=== PATIENT | female | born 1985 | race Caucasian/White ===

== ENCOUNTER 2017-08-23 06:58 | Day surgery (SDC) | payer BC ==
[~2017-08-23 06:58] MED LIST: Lactated Ringers 1,000 ML IV SCH; Lidocaine 1%/Sod Bicarbonate in NS 8.4% 1 ML Syringe IV PRN; Sodium Chloride 0.9% 10 ML Syringe FLUSH PRN
[2017-08-23] MEDS ORDERED: Ondansetron 4 MG/2 ML SDV ONE (07:45)
[2017-08-23] MEDS ORDERED: Midazolam 1 MG/ML 2 ML SDV ONE (07:46)
[2017-08-23] MEDS ORDERED: Propofol 200 MG/20 ML SDV ONE (07:46)
[2017-08-23] MEDS ORDERED: fentaNYL 250 MCG/5 ML SDV ONE (07:46)
[2017-08-23] MEDS ORDERED: ceFAZolin 1 GM Vial ONE (07:46)
[2017-08-23] MEDS ORDERED: Lidocaine 1% 4 ML ONE (07:46)
[2017-08-23] MEDS ORDERED: Lactated Ringers 1,000 ML ONE (08:49)
[2017-08-23] MEDS ORDERED: Ketorolac 30 MG/ML SDV IVPUSH PRN (08:55)
[2017-08-23] MEDS ORDERED: fentaNYL 100 MCG/2 ML SDV IVPUSH PRN (08:55)
[2017-08-23] MEDS ORDERED: HYDROmorphone 0.5 MG/0.5 ML Syringe IVPUSH PRN (08:55)
--- NOTE | 2017-08-23 08:55 | PCM.OPNOTE ---
- General Post-Op/Procedure Note Date of Surgery/Procedure: 08/23/17 Operative Procedure(s): Hysteroscopy, D&C and NovaSure endometrial ablation Findings: Wispy endometrial tissue noted especially in the anterior left side of the uterus. Tubal ostia were identified and appeared normal. The uterus sounded to 10.5 cm with cervix being 3 cm above that. The width of the uterus was 4.3 cm. The is was 154. Pre Op Diagnosis: 1. Menorrhagia. 2. Dysmenorrhea Post-Op Diagnosis: Same Anesthesia Technique: General LMA Primary Surgeon: Clark Noel Secondary Surgeon: Mary Rosa Anesthesia Provider: Rusty Cao Fluid Replacement, Intraop: 1,100 (Crystalloid) EBL in mLs: 5 Complications: None Condition: Good Free Text/Narrative:: Surgery duration 14 minutes Procedure Procedure: The patient is taking the operative placed in a supine position on the operating table. She received 2 g of Ancef preoperatively for infection prophylaxis and had sequential compression stockings in place for DVT prophylaxis. Patient was given general anesthesia and an LMA was placed for ventilation. She is placed in a dorsal lithotomy position and prepped and draped in usual fashion. An exam under anesthesia was performed. Findings as described above. A weighted speculum was placed in the vagina. Cervix is visualized. It was grasped anteriorly with a single-tooth tenaculum. Uterus was then sounded to a depth of 10-1/2 cm. It is from the anterior, mid position. The cervix was dilated to entrance of a 5 mm 30 rigid hysteroscope. This was placed without problem and normal saline was used as a distending medium. The perimetria cavity was visualized. Findings as described above. Decision was made to proceed with curettage to remove tissue and to obtain a sampling of endometrium. This was done with a medium size sharp curette. Minimal amount tissue was obtained. Minimal bleeding was encountere Image ablation was then performed. Should be noted consent was appropriately signed by the patient prior to the procedure. The cervix was dilated to allow placement of the NovaSure endometrial apparatus. Uterus had sounded to 10 cm -3 cm for cervix for uterine/endometrial cavity length of 7-1/2 cm. The NovaSure device was set to 6 now centimeters as this was maximal setting. The image cavities foundry 4.3 cm in width. Uterine cavity integrity check was then performed and the endometrial cavity was then ablated. Energy was 154. The ablation took approximately 2 minutes. The array was collapsed and the apparatus was removed. Hysteroscope was then placed back into the endometrial cavity. Blood was flushed out and the findings were consistent with a cauterizedendometrial cavity. At this point the scope was removed. The vagina was cleared of old blood , the cervix was released and the weighted speculum was removed. Patient was returned to supine position and awakened from general anesthesia. She tolerated the procedure well and operating room in good condition.
[2017-08-23] MEDS ORDERED: Ibuprofen 600 MG Tab PO PRN (08:56)
[2017-08-23] MEDS ORDERED: Ondansetron 4 MG/2 ML SDV IVPUSH PRN (08:56)
--- NOTE | 2017-08-23 08:57 | PCM.PREANE ---
Preanesthetic Assessment - Anesthesia/Transfusion/Family Hx Anesthesia History: Prior Anesthesia Without Reaction Transfusion History: No Prior Transfusion(s) - Review of Systems General: No Symptoms Pulmonary: No Symptoms Cardiovascular: No Symptoms Gastrointestinal: No Symptoms Neurological: No Symptoms Other: Reports: None - Physical Assessment NPO Status Date: 08/22/17 NPO Status Time: 21:30 Pulse: 74 O2 Sat by Pulse Oximetry: 96 Respiratory Rate: 16 Blood Pressure: 97/74 Temperature: 36.8 C Vital Signs: Last Vital Signs Temp 36.8 C 08/23/17 07:10 Pulse 74 08/23/17 07:10 Resp 16 08/23/17 07:10 BP 97/74 08/23/17 07:10 Pulse Ox 96 08/23/17 07:10 Height: 1.63 m Weight: 61.235 kg ASA Class: 1 Mental Status: Alert & Oriented x3 Airway Class: Mallampati = 1 Dentition: Reports: Normal Dentition, [place](s) Thyro-Mental Finger Breadths: 3 Mouth Opening Finger Breadths: 3 ROM/Head Extension: Full Lungs: Clear to Auscultation, Normal Respiratory Effort Cardiovascular: Regular Rate, Regular Rhythm - Allergies Allergies/Adverse Reactions: Allergies Allergy/AdvReac Type Severity Reaction Status Date / Time No Known Allergies Allergy Verified 08/20/17 10:57 - Blood Blood Available: No Product(s) Available: None - Anesthesia Plan Pre-Op Medication Ordered: None - Acknowledgements Anesthesia Type Planned: General Anesthesia Pt an Appropriate Candidate for the Planned Anesthesia: Yes Alternatives and Risks of Anesthesia Discussed w Pt/Guardian: Yes Pt/Guardian Understands and Agrees with Anesthesia Plan: Yes PreAnesthesia Questionnaire HEENT History: Reports: Impaired Vision, Other (See Below) Other HEENT History: wears glasses Cardiovascular History: Reports: None Respiratory History: Reports: None Gastrointestinal History: Reports: Cholelithiasis 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: , Other (See Below) Other OB/BYN History: menorrhagia, dysmenorrhea Musculoskeletal History: Reports: None Neurological History: Reports: None Psychiatric History: Reports: None Endocrine/Metabolic History: Reports: None Hematologic History: Reports: None Immunologic History: Reports: None Oncologic (Cancer) History: Reports: None Dermatologic History: Reports: None - Past Surgical History Head Surgeries/Procedures: Reports: None Cardiovascular Surgical History: Reports: None Respiratory Surgical History: Reports: None GI Surgical History: Reports: Cholecystectomy Female Surgical History: Reports: Tubal Ligation Endocrine Surgical History: Reports: None Neurological Surgical History: Reports: None Musculoskeletal Surgical History: Reports: None Oncologic Surgical History: Reports: None Dermatological Surgical History: Reports: None - SUBSTANCE USE Smoking Status *Q: Never Smoker Second Hand Smoke Exposure: No Recreational Drug Use History: No - HOME MEDS Home Medications: Home Meds Multivitamin [Daily Hill] 1 tab PO DAILY 08/20/17 [History] - CURRENT (IN HOUSE) MEDS Current Meds: Current Medications Lactated Ringer's (Ringers, Lactated) 1,000 mls @ 125 mls/hr IV ASDIRECTED MARVA Last Admin: 08/23/17 07:30 Dose: 125 mls/hr Lidocaine/Sodium Bicarbonate (Buffered Lidocaine 1% In Ns 8.4%) 0.25 ml IV ONETIME PRN PRN Reason: Prior to IV Start Sodium Chloride (Saline Flush) 10 ml FLUSH ASDIRECTED PRN PRN Reason: Keep Vein Open Discontinued Medications Cefazolin Sodium (Ancef) Confirm Administered Dose 2 gm .ROUTE .STK-MED ONE Stop: 08/23/17 07:47 Fentanyl (Sublimaze) Confirm Administered Dose 250 mcg .ROUTE .STK-MED ONE Stop: 08/23/17 07:47 Lidocaine HCl (Xylocaine-Mpf 1%) Confirm Administered Dose 4 mls @ as directed .ROUTE .STK-MED ONE Stop: 08/23/17 07:47 Lactated Ringer's (Ringers, Lactated) Confirm Administered Dose 1,000 mls @ as directed .ROUTE .STK-MED ONE Stop: 08/23/17 08:50 Midazolam HCl (Versed 1 Mg/Ml) Confirm Administered Dose 2 mg .ROUTE .STK-MED ONE Stop: 08/23/17 07:47 Ondansetron HCl (Zofran) Confirm Administered Dose 4 mg .ROUTE .STK-MED ONE Stop: 08/23/17 07:46 Propofol (Diprivan 20 Ml) Confirm Administered Dose 200 mg .ROUTE .STK-MED ONE Stop: 08/23/17 07:47
--- NOTE | 2017-08-23 08:58 | PCM.POSTAN ---
POST ANESTHESIA ASSESSMENT - MENTAL STATUS Mental Status: Somnolent - VITAL SIGNS Pulse Rate: 73 SaO2: 93 Resp Rate: 8 Blood Pressure: 96/63 Temperature: 36.8 C - RESPIRATORY Respiratory Status: Respiratory Rate WNL, Airway Patent, O2 Saturation Stable, Supplemental Oxygen - CARDIOVASCULAR CV Status: Pulse Rate WNL, Blood Pressure Stable - GASTROINTESTINAL GI Status: No Symptoms - PAIN Pain Score: 0 - POST OP HYDRATION Hydration Status: Adequate & Stable - OBSERVATIONS Free Text/Narrative:: no anesthesia complications noted
== END 2017-08-23 10:15 | disposition home or self-care (01) ==
LOC: JD.SDS 06:58
PROVIDERS: ATTEND Obstetrics & Gynecology
DX: N92.0 Excessive and frequent menstruation with regular cycle (principal); N94.6 Dysmenorrhea, unspecified; Z98.51 Tubal ligation status; Z72.0 Tobacco use; Z90.49 Acquired absence of other specified parts of digestive tract
CPT/HCPCS: 58563; J0690; J1885; J2250; J2405; J3010; J7120; 00952; J2704

== ENCOUNTER 2020-09-13 06:47 | Day surgery (SDC) | payer BC ==
[2020-09-13] MEDS ORDERED: HYDROmorphone 0.5 MG/0.5 ML Syringe ONE (07:03)
[2020-09-13] MEDS ORDERED: Dexamethasone 4 MG/ML 5 ML MDV ONE (07:03)
[2020-09-13] MEDS ORDERED: Midazolam 1 MG/ML 2 ML SDV ONE (07:03)
[2020-09-13] MEDS ORDERED: Rocuronium 50 MG/5 ML Vial ONE (07:03)
[2020-09-13] MEDS ORDERED: Lactated Ringers 1,000 ML ONE (07:03)
[2020-09-13] MEDS ORDERED: Ondansetron 4 MG/2 ML SDV ONE (07:03)
[2020-09-13] MEDS ORDERED: Propofol 200 MG/20 ML SDV ONE (07:03)
[2020-09-13] MEDS ORDERED: fentaNYL 250 MCG/5 ML SDV ONE (07:04)
[2020-09-13] MEDS ORDERED: Lidocaine 1% 4 ML ONE (07:04)
[2020-09-13] MEDS ORDERED: ceFAZolin 1 GM Vial ONE (07:04)
[2020-09-13] MEDS ORDERED: Ketorolac 30 MG/ML SDV ONE (07:04)
[2020-09-13] MEDS ORDERED: Sodium Chloride 0.9% 50 ML SDV ONE (07:16)
[2020-09-13] MEDS ORDERED: Lidocaine 1% with EPINEPHrine 1:100,000 20 ML MDV ONE (07:16)
--- NOTE | 2020-09-13 07:24 | PCM.PREANE ---
Preanesthetic Assessment - Anesthesia/Transfusion/Family Hx Anesthesia History: Prior Anesthesia Without Reaction Family History of Anesthesia Reaction: No Transfusion History: No Prior Transfusion(s) - Review of Systems General: Other (covid negative and HCG negative) Pulmonary: No Symptoms Cardiovascular: No Symptoms Gastrointestinal: No Symptoms Neurological: No Symptoms Other: Reports: Anxiety - Physical Assessment NPO Status Date: 09/12/20 NPO Status Time: 22:00 ASA Class: 2 Mental Status: Alert & Oriented x3 Airway Class: Mallampati = 2 Dentition: Reports: Normal Dentition Thyro-Mental Finger Breadths: 3 Mouth Opening Finger Breadths: 3 ROM/Head Extension: Full Lungs: Clear to Auscultation, Normal Respiratory Effort Cardiovascular: Regular Rate, Regular Rhythm - Lab Values: Laboratory Last Values Urine HCG, Qual Negative (NEGATIVE) 09/13/20 07:00 - Allergies Allergies/Adverse Reactions: Allergies Allergy/AdvReac Type Severity Reaction Status Date / Time No Known Allergies Allergy Verified 08/20/17 10:57 - Blood Blood Available: No Product(s) Available: None - Anesthesia Plan Pre-Op Medication Ordered: None - Acknowledgements Anesthesia Type Planned: General Anesthesia Pt an Appropriate Candidate for the Planned Anesthesia: Yes Alternatives and Risks of Anesthesia Discussed w Pt/Guardian: Yes Pt/Guardian Understands and Agrees with Anesthesia Plan: Yes PreAnesthesia Questionnaire HEENT History: Reports: Impaired Vision, Other (See Below) Other HEENT History: wears glasses Cardiovascular History: Reports: None Respiratory History: Reports: None Gastrointestinal History: Reports: Cholelithiasis 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: , Other (See Below) Other OB/BYN History: menorrhagia, dysmenorrhea Musculoskeletal History: Reports: None Neurological History: Reports: None Psychiatric History: Reports: None Endocrine/Metabolic History: Reports: None Hematologic History: Reports: None Immunologic History: Reports: None Oncologic (Cancer) History: Reports: None Dermatologic History: Reports: None - Past Surgical History Head Surgeries/Procedures: Reports: None Cardiovascular Surgical History: Reports: None Respiratory Surgical History: Reports: None GI Surgical History: Reports: Cholecystectomy Female Surgical History: Reports: Tubal Ligation Endocrine Surgical History: Reports: None Neurological Surgical History: Reports: None Musculoskeletal Surgical History: Reports: None Oncologic Surgical History: Reports: None Dermatological Surgical History: Reports: None - HOME MEDS Home Medications: Home Meds Multivitamin [Daily Hill] 1 tab PO DAILY 08/20/17 [History] Ibuprofen [IJD: Ibuprofen] 600 mg PO Q4H PRN tablet 08/23/17 [Rx] - CURRENT (IN HOUSE) MEDS Current Meds: Current Medications Discontinued Medications Cefazolin Sodium (Ancef) Confirm Administered Dose 2 gm .ROUTE .STK-MED ONE Stop: 09/13/20 07:05 Dexamethasone (Dexamethasone) Confirm Administered Dose 20 mg .ROUTE .STK-MED ONE Stop: 09/13/20 07:04 Fentanyl (Sublimaze) Confirm Administered Dose 250 mcg .ROUTE .STK-MED ONE Stop: 09/13/20 07:05 Glycopyrrolate (Robinul) Confirm Administered Dose 0.4 mg .ROUTE .STK-MED ONE Stop: 09/13/20 07:04 Hydromorphone HCl (Dilaudid) Confirm Administered Dose 0.5 mg .ROUTE .STK-MED ONE Stop: 09/13/20 07:04 Lactated Ringer's (Ringers, Lactated) Confirm Administered Dose 1,000 mls @ as directed .ROUTE .STK-MED ONE Stop: 09/13/20 07:04 Lidocaine HCl (Xylocaine-Mpf 1%) Confirm Administered Dose 4 mls @ as directed .ROUTE .STK-MED ONE Stop: 09/13/20 07:05 Ketorolac Tromethamine (Toradol) Confirm Administered Dose 30 mg .ROUTE .STK-MED ONE Stop: 09/13/20 07:05 Midazolam HCl (Versed 1 Mg/Ml) Confirm Administered Dose 2 mg .ROUTE .STK-MED ONE Stop: 09/13/20 07:04 Neostigmine Methylsulfate (Neostigmine Methylsulfate) Confirm Administered Dose 5 mg .ROUTE .STK-MED ONE Stop: 09/13/20 07:04 Ondansetron HCl (Zofran) Confirm Administered Dose 4 mg .ROUTE .STK-MED ONE Stop: 09/13/20 07:04 Propofol (Diprivan 20 Ml) Confirm Administered Dose 200 mg .ROUTE .STK-MED ONE Stop: 09/13/20 07:04 Rocuronium Pointblank (Zemuron) Confirm Administered Dose 50 mg .ROUTE .STK-MED ONE Stop: 09/13/20 07:04
[2020-09-13] MEDS ORDERED: Sodium Chloride 0.9% 10 ML Syringe FLUSH PRN (07:54)
[2020-09-13] MEDS ORDERED: Lidocaine 1%/Sod Bicarbonate in NS 8.4% 1 ML Syringe IDERM PRN (07:54)
[2020-09-13] MEDS ORDERED: Lactated Ringers 1,000 ML IV SCH (08:00)
[2020-09-13] MEDS ORDERED: Acetaminophen/oxyCODONE 325-5 MG Tab PO PRN (08:44)
[2020-09-13] MEDS ORDERED: Ondansetron 4 MG/2 ML SDV IVPUSH PRN ×2 (08:44→09:03)
--- NOTE | 2020-09-13 08:50 | PCM.OPNOTE ---
- General Post-Op/Procedure Note Date of Surgery/Procedure: 09/13/20 Operative Procedure(s): Total vaginal hysterectomy with bilateral salpingectomy Findings: Uterus was normal size. Fallopian tubes were within normal is. Patient is status post tubal ligation. Both ovaries look functional and benign. Right ovary had a cyst which apparently had recently ruptured but was not bleeding and needed no further attention. Pre Op Diagnosis: 1. Dysmenorrhea. 2. Post ablation syndrome Post-Op Diagnosis: Same Anesthesia Technique: General ET Tube Other Anesthesia Type: Lidocaine quarter percent with [id number] cc total Primary Surgeon: Clark Noel Secondary Surgeon: Johana Benoit Anesthesia Provider: Lashell Love Washcloth Folder: Eduardo Pickering Reason Washcloth Folder Was Necessary: Assistance, retraction, patient safety, quality of care. Pathology: Uterus with cervix, bilateral fallopian tubes Fluid Replacement, Intraop: 1,600 EBL in mLs: 100 Complications: None Condition: Good Free Text/Narrative:: Surgery duration: 36 minutes Procedure: The patient was placed in supine position on the operating table. Patient was appropriately consented. General endotracheal anesthesia was accomplished. After positioning, and adequate prep and drape, the procedure was then performed. Sterile speculum was placed in the vagina and cervix was visualized. Cervix was injected with lidocaine quarter percent with epinephrine- 20 mL used. A full circumference incision was made in the cervical epithelium. The bladder was pushed well back off cervix. Posterior cul-de-sac was then entered sharply without problems. Left uterosacral was crossclamped with a Enseal vessel closure system. The left uterosacral and then the right uterosacral ligament pedicles were developed using the Enseal system. The anterior cul-de-sac was then entered without problems guidance from finger that was run up over the fundal portion of the uterus. The uterine vasculature, cardinal ligament and broad ligament then developed using Enseal vessel closure system. The uterus was inverted at this time and upper broad ligament fallopian tube pedicles were crossclamped with Scotty clamps. Specimen was totally removed. Both these pedicles were then secured with a Scotty stitch of #1 Vicryl. Left and right fallopian tube was normal in appearance.. Using Enseal vessel closure system each of the tubes was then removed and sent with the specimen. The patient was found to be hemostatically intact at this time. Vaginal cuff wa s sutured for hemostatic reasons with a running locked suture of 0 Monocryl from the 2 o'clock position to the 10 o'clock position posteriorly. Vaginal cuff was then closed from right to left side with a running locked suture of 0 Monocryl. Patient was returned to supine position and awakened from general endotracheal anesthesia. She tolerated the procedure and left the operating room in satisfa ctory condition.
--- NOTE | 2020-09-13 09:02 | PCM.POSTAN ---
POST ANESTHESIA ASSESSMENT - MENTAL STATUS Mental Status: Alert, Oriented - VITAL SIGNS Vital Signs: Last Vital Signs Temp 36.6 C 09/13/20 07:05 Pulse 61 09/13/20 07:05 Resp 16 09/13/20 07:05 BP 103/73 09/13/20 07:05 Pulse Ox 95 09/13/20 07:05 - RESPIRATORY Respiratory Status: Respiratory Rate WNL, Airway Patent, O2 Saturation Stable, Supplemental Oxygen - CARDIOVASCULAR CV Status: Pulse Rate WNL, Blood Pressure Stable - GASTROINTESTINAL GI Status: No Symptoms - PAIN Pain Score: 0 - POST OP HYDRATION Hydration Status: Adequate & Stable
[2020-09-13] MEDS ORDERED: diphenhydrAMINE 50 MG/ML SDV IVPUSH PRN (09:03)
[2020-09-13] MEDS ORDERED: HYDROmorphone 0.5 MG/0.5 ML Syringe IVPUSH PRN (09:03)
[2020-09-13] MEDS ORDERED: fentaNYL 100 MCG/2 ML SDV IVPUSH PRN (09:03)
--- NOTE | 2020-09-13 12:35 | PCM48HPAN ---
Post Anesthesia Note - EVALUATION WITHIN 48HRS OF ANESTHETIC Vital Signs in Normal Range: Yes Patient Participated in Evaluation: Yes Respiratory Function Stable: Yes Airway Patent: Yes Cardiovascular Function Stable: Yes Hydration Status Stable: Yes Pain Control Satisfactory: Yes Nausea and Vomiting Control Satisfactory: Yes Mental Status Recovered: Yes Vital Signs: Last Vital Signs Temp 36.3 C 09/13/20 10:50 Pulse 62 09/13/20 11:30 Resp 16 09/13/20 11:30 BP 112/64 09/13/20 11:30 Pulse Ox 95 09/13/20 11:30
[2020-09-13] MEDS ORDERED: Ketorolac 30 MG/ML SDV IVPUSH SCH (13:30)
== END 2020-09-13 11:50 | disposition home or self-care (01) ==
LOC: JD.SDS 06:47
PROVIDERS: ATTEND Obstetrics & Gynecology
DX: D25.1 Intramural leiomyoma of uterus (principal); N80.0 Endometriosis of uterus; N83.8 Other noninflammatory disorders of ovary, fallopian tube and broad ligament; F41.9 Anxiety disorder, unspecified; Z79.899 Other long term (current) drug therapy; Z90.49 Acquired absence of other specified parts of digestive tract
CPT/HCPCS: 36415; 58262; 81025; 86850; 86900; 86901; A9270; J0690; J1100; J1170; J1885; J2001; J2250; J2405; J2704; J2710; J3010; J7120; 00944

== ENCOUNTER 2025-03-08 07:00 | Day surgery (SDC) | payer BC ==
[~2025-03-08 07:00] MED LIST changes: +Bupivacaine 0.25% 10 ML SDV ONE; +Dexamethasone 4 MG/ML 5 ML MDV ONE; -Lactated Ringers 1,000 ML IV SCH; +Lidocaine 1% 5 ML VIAL ONE; -Lidocaine 1%/Sod Bicarbonate in NS 8.4% 1 ML Syringe IV PRN; +Midazolam 1 MG/ML 2 ML SDV ONE; +Ondansetron 4 MG/2 ML SDV ONE; +Rocuronium 50 MG/5 ML Vial ONE; +Ropivacaine 0.5% 5 MG/ML 30 ML SDV ONE; +Sodium Chloride 0.9% 10 ML Syringe FLUSH SCH; +dexmedeTOMIDine HCl 200 MCG/2 ML SDV ONE; +fentaNYL 100 MCG/2 ML SDV ONE; +propofoL 500 MG/50 ML 50 ML ONE
[2025-03-08] MEDS: Lactated Ringers 1,000 ML IV SCH (07:10)
[2025-03-08] MEDS ORDERED: ceFAZolin 2 GM Vial ONE (08:21)
[2025-03-08] MEDS ORDERED: Propofol 200 MG/20 ML SDV ONE ×2 (08:38→08:59)
[2025-03-08] MEDS ORDERED: fentaNYL 100 MCG/2 ML SDV IVPUSH PRN (08:44)
[2025-03-08] MEDS ORDERED: HYDROmorphone 0.5 MG/0.5 ML Syringe IVPUSH PRN (08:44)
[2025-03-08] MEDS ORDERED: Ondansetron 4 MG/2 ML SDV IVPUSH PRN (08:44)
[2025-03-08] MEDS ORDERED: Lactated Ringers 1,000 ML ONE (08:48)
[2025-03-08] MEDS ORDERED: Ketorolac 30 MG/ML SDV IVPUSH ONE (09:00)
[2025-03-08] MEDS: EPINEPHrine 1 MG/ML SDV ONE (09:00)
[2025-03-08] MEDS ORDERED: Sugammadex Sodium 200 MG/2 ML VIAL IV ONE (09:08)
== END 2025-03-08 11:55 | disposition home or self-care (01) ==
LOC: JD.SDS 07:00
PROVIDERS: ATTEND Orthopaedic Surgery
DX: S43.432A Superior glenoid labrum lesion of left shoulder, initial encounter (principal); M75.22 Bicipital tendinitis, left shoulder; Z79.899 Other long term (current) drug therapy
CPT/HCPCS: 29807; 29828; 64415; C1713; J0171; J0690; J1100; J2003; J2250; J2405; J2704; J2795; J3010; J7120; 01630; J0665; J3490